=== PATIENT | female | born 1995 | race Caucasian/White ===

== ENCOUNTER 2024-08-11 12:00 | Emergency (ER) | payer MEDICAID ==
[~2024-08-11] VITALS: Ht 167.6 cm; Wt 53.0 kg
[2024-08-11 12:02] VITALS: O2SAT 100
[2024-08-11] MEDS: NALOXONE HCL 0.4MG/ML 1ML VIAL IV ONE (14:10)
[2024-08-11] MEDS: SODIUM CHLORIDE 0.9% 1,000 ML IV ONE (14:10)
[2024-08-11 14:31] LABS: BASOPHILS % 0.8 % (0.0-2.0); EOSINOPHILS % 2.3 % (0.0-5.0); HEMATOCRIT. 32.4 % (36.0-48.0); LYMPHOCYTES % 29.6 % (20.0-50.0); MEAN CORPUSCULAR HEMOGLOBIN 27.2 pg (28.0-32.0); MEAN CORPUSCULAR VOLUME 80.2 fL (81.0-99.0); MEAN PLATELET VOLUME 6.6 fl (7.4-10.4); MONOCYTES % 10.9 % (2.0-8.0); NEUTROPHILS % 56.4 % (40.0-76.0); PLATELET 378 x1000/uL (130-400); RED BLOOD CELL COUNT 4.04 mill/uL (4.2-5.4); RED CELL DISTRIBUTION WIDTH 15.3 % (11.6-14.6); WHITE BLOOD COUNT 6.1 x1000/uL (4.5-11.0)
[2024-08-11 14:43] LABS: CHLORIDE 101 mEq/L (98-107); POTASSIUM 4.4 mEq/L (3.5-5.1); SODIUM 136 mEq/L (136-145)
[2024-08-11 14:44] LABS: CALCIUM 8.7 mg/dL (8.7-10.4); CARBON DIOXIDE 28 mEq/L (21-32)
[2024-08-11 14:49] LABS: CREATININE 0.7 mg/dL (0.6-1.0); GLUCOSE 92 mg/dL (70-105); UREA NITROGEN BLOOD 13 mg/dL (9-23)
[2024-08-11 14:50] LABS: ETHANOL BLOOD < 10 mg/dL (<10)
[2024-08-11] MEDS ORDERED: NALO4SPR BOTHNSTRLS (16:36)
[2024-08-11 17:01] VITALS: BP 114/92; PULSE 93; RESP 12; TEMP 36.4; O2SAT 100
== END 2024-08-11 17:02 | disposition home or self-care (01) ==
LOC: ER 12:00
DX: F19.11 Other psychoactive substance abuse, in remission (principal); Z98.890 Other specified postprocedural states
CPT/HCPCS: 80048; 80320; 85025; 36415; 96361; 96374; 99285; J2310; J7030; Z7610; G0480